=== PATIENT | female | born 1970 | race Caucasian/White ===

== ENCOUNTER 2021-12-17 09:29 | Emergency (ER) | payer SELFPAY ==
[~2021-12-17 09:29] MED LIST: ZOVIRAX 800 MG800 MG PO
== END 2021-12-17 12:39 | disposition home or self-care (01) ==
LOC: ER1 09:29
DX: S80.01XA Contusion of right knee, initial encounter (principal); M79.652 Pain in left thigh; M25.552 Pain in left hip; Z86.73 Personal history of transient ischemic attack (TIA), and cerebral infarction without residual deficits; J44.9 Chronic obstructive pulmonary disease, unspecified; G43.909 Migraine, unspecified, not intractable, without status migrainosus; Z79.82 Long term (current) use of aspirin; Z79.02 Long term (current) use of antithrombotics/antiplatelets; Z87.891 Personal history of nicotine dependence; Z88.1 Allergy status to other antibiotic agents; Z88.8 Allergy status to other drugs, medicaments and biological substances; W01.10XA Fall on same level from slipping, tripping and stumbling with subsequent striking against unspecified object, initial encounter; Y99.0 Civilian activity done for income or pay
CPT/HCPCS: 72170; 73552; 73564; 99283

== ENCOUNTER → 2021-12-24 | Outpatient (CLI) | payer OTHER | LOC: KOH-I 14:17 | DX: M25.562 Pain in left knee (principal); M79.605 Pain in left leg | CPT/HCPCS: 73718; 73721 ==